=== PATIENT | female | born 1995 | race Caucasian/White ===

== ENCOUNTER 2017-11-16 19:50 | Emergency (ER) | payer MEDICAID ==
[~2017-11-16] VITALS: Ht 154.9 cm; Wt 77.8 kg
[2017-11-16 20:07] VITALS: Ht 154.9 cm; Wt 77.8 kg
[2017-11-16 20:39] VITALS: BP 146/92
== END 2017-11-16 20:39 | disposition home or self-care (01) ==
LOC: ED 19:50
DX: Z02.79 Encounter for issue of other medical certificate (principal)